=== PATIENT | female | born 1980 | race Caucasian/White ===

== ENCOUNTER → 2017-01-26 | Outpatient (CLI) | payer OTHER ==
--- NOTE | ~2017-01-26 | MY26 ---
[facility] A Service of [facility] & [facility] RADIOLOGY TEXT RESULTS PATIENT: SANCHO CALL LOCATION: [facility] : [birth year] UNIT #: [id number] AGE: [address]: Zehra Marin MD SEX: F ORDER DR: [id number] [facility] [address] [place], [place] [address] [id number] O MR#: [id number] Acc #: [id number] NAME: SANCHO CALL : 1980 SEX: F STUDY DATE/TIME: 01/26/2017 10:41 UNIT: [facility] ROOM: STUDY DESCRIPTION: MY [facility] DIAGNOSTIC W/ CAD BILAT Attending Physician: Zehra Marin M.D. Referring Physician: Zehra Marin M.D. Ordering Physician: Zehra Marin M.D. Primary Care Physician: Zehra Marin M.D. MEDICAL IMAGING REPORT This report is preliminary unless electronic signature is present EXAM Bilateral digital diagnostic mammogram with CAD DATE 01/26/2017 HISTORY 36-year-old female with bilateral dark-color, greenish nipple discharge for a few months, left greater than right. Patient states it occurs predominately on the left upon compression. No palpable complaints. Family history of breast cancer in a grandmother. COMPARISON None. This is the patient's baseline study. FINDINGS CC, MLO and true ML views were obtained of each breast utilizing digital technique and reviewed with an FDA-approved CAD device. Heterogeneously dense fibroglandular tissue is present bilaterally which can limit sensitivity of mammography. No suspicious nodule, architectural distortion or clustered microcalcification is identified on either side. No abnormal skin thickening or nipple retraction is evident. Given the patient's complaints of bilateral nipple discharge, targeted sonographic imaging was performed of the subareolar regions of each breast. The bilateral subareolar regions demonstrate mild generalized ductal ectasia, left greater than right. No intraductal filling defects are seen in the right subareolar breast. However, in the left subareolar breast in the lower inner quadrant, there is a slightly less than 2 cm length segment of duct which is distended with echogenic material. It is unclear whether this simply represents viscous debris, or potentially intraductal lesions such as papillomas. No identifiable color flow is STS. [facility] A Service of [facility] RADIOLOGY TEXT RESULTS PATIENT: SANCHO CALL LOCATION: [facility] : [birth year] UNIT #: [id number] AGE: [address]: Zehra Marin MD SEX: F ORDER DR: demonstrated within these areas of intraductal filling. IMPRESSION 1. BIRADS 4. Suspicious abnormality. Biopsy recommended. There is an abnormal segment of intraductal filling defect and ductal distension in the lower inner subareolar left breast. It is unclear whether this represents a viscous debris within the duct, or potentially could represent papillomatous change. In either case, either breast surgical consultation for contemplation of duct excision versus ultrasound-guided core biopsy would be recommended at this time, particularly given the patient's complaints of nipple discharge. While there is mild ductal ectasia in the subareolar right breast, no intraductal abnormalities are seen, and any further management of the patient's right breast nipple discharge should be based upon clinical assessment. 2. The findings and recommendations were discussed in great detail with the patient today in the radiology department, and she verbalized understanding. 3. I have notified the breast point of care specialist, Maribell, who is currently making contact with the office of Dr. Zehra Marin to facilitate appropriate follow up. Patients over the age of 40 are entered into a reminder system with target due date for the next mammogram. A result letter will also be sent to the patient. BIRADS: 4. Suspicious abnormality; biopsy should be considered. Dictated by... Supriya Cooper M.D. THIS IS AN ELECTRONICALLY VERIFIED REPORT Supriya Cooper M.D. at 01/27/2017 9:00 AM FLIP/[place] TD: 01/26/2017 14:43 JOB #: [id number] MEDICAL IMAGING REPORT Page 1 of 1 COPY
--- NOTE | ~2017-01-26 | US17 ---
[facility] A Service of [facility] RADIOLOGY TEXT RESULTS PATIENT: SANCHO CALL LOCATION: [facility] : [birth year] UNIT #: [id number] AGE: [address]: Zehra Marin MD SEX: F ORDER DR: [id number] [facility] [address] [place], [place] [address] [id number] O MR#: [id number] Acc #: [id number] NAME: SANCHO CALL : 1980 SEX: F STUDY DATE/TIME: 01/26/2017 11:03 UNIT: [facility] ROOM: STUDY DESCRIPTION: US Breast Bilateral Attending Physician: Zehra Marin M.D. Referring Physician: Zehra Marin M.D. Ordering Physician: Zehra Marin M.D. Primary Care Physician: Zehra Marin M.D. MEDICAL IMAGING REPORT This report is preliminary unless electronic signature is present EXAM Targeted bilateral diagnostic breast ultrasound. DATE: 01/26/2017 HISTORY Bilateral nipple discharge for months, dark and greenish, left greater than right. COMPARISON Bilateral diagnostic mammogram 01/26/2017. FINDINGS Targeted sonographic imaging was performed in the subareolar regions of each breast. Please refer to the diagnostic mammogram report from the same day for full description of mammographic and sonographic findings and recommendations. IMPRESSION BIRADS 4. Suspicious abnormality in the left breast. Left breast. Biopsy recommended. Please refer to the diagnostic mammogram report from the same day for full description mammographic and sonographic findings recommendations. BIRADS: 4 - Suspicious abnormality. Biopsy should be considered. Dictated by... Supriya Cooper M.D. THIS IS AN ELECTRONICALLY VERIFIED REPORT [facility] A Service [facility] RADIOLOGY TEXT RESULTS PATIENT: SANCHO CALL LOCATION: [facility] : [birth year] UNIT #: [id number] AGE: [address]: Zehra Marin MD SEX: F ORDER DR: Supriya Cooper M.D. at 01/27/2017 9:00 AM FLIP/robert TD: 01/26/2017 14:52 JOB #: [id number] MEDICAL IMAGING REPORT Page 1 of 1 COPY
== END | disposition home or self-care (01) ==
LOC: CMAM 10:00
DX: N64.52 Nipple discharge (principal); N60.41 Mammary duct ectasia of right breast
CPT/HCPCS: 76641; G0204